=== PATIENT | male | born 1975 | race Caucasian/White ===

== ENCOUNTER 2022-11-10 15:12 | Observation (INO) | payer MEDICAID, SELFPAY ==
[2022-11-10] VITALS (57 sets, daily range): BP systolic 104–148; BP diastolic 64–110; PULSE 57–107; RESP 4–23; TEMP 36.8–37; O2SAT 81–100; BMI 26.0
--- NOTE | 2022-11-10 15:19 | ED_ITS ---
HPI - CPR General Chief Complaint: Cardiac Arrest/CPR Stated Complaint: CARDIAC ARREST Mode of arrival: walk-in History of Present Illness HPI Narrative: Patient brought in unresponsive. He was carried in to the emergency department by his 2 sons and a friend. They state they found him in the basement on the ground head 1st. He was not responding. He was not breathing. He was cyanotic he has a known history of drug abuse. He has not been sick with anything recently. No other history is provided by the family. There is a family friend who states the patient uses meth, cocaine, heroine, fentanyl, and anything becomes this way. Related Data Allergies Allergy/AdvReac Type Severity Reaction Status Date / Time No Known Drug Allergies Allergy Verified 11/10/22 15:18 Review of Systems ROS Status of ROS unobtainable due to medical condition Examination Exam Primary Survey: Yes apneic and Yes bag valve mask General: Yes thin Head/Face: Yes other (No trauma noted) Eyes: Yes pinpoint pupils Neck: Yes supple Chest: Yes intact to palpation Circulation: Yes weak peripheral pulse, Yes cyanosis and Yes mottling Respiratory: Yes other (No chest rise, no respiratory effort.) Gastrointestinal: Yes nondistended Extremities: Yes intact to palpation Back/Spine: Yes normal to inspection Skin: Yes no sign of injury Course Vital Signs Vital signs: Vital Signs Pulse Oximetry 97 11/10/22 15:25 Oxygen Delivery Method Nasal Cannula 11/10/22 15:25 Oxygen Delivery Flow Rate 3 11/10/22 15:25 Pulse Rate 100 H 11/10/22 18:00 Respiratory Rate 21 11/10/22 18:00 Blood Pressure 134/98 H 11/10/22 17:15 Pulse Oximetry 100 11/10/22 17:20 Oxygen Delivery Method Nasal Cannula 11/10/22 15:25 Oxygen Delivery Flow Rate 3 11/10/22 15:25 MDM - Cardiac Arrest/CPR MDM Narrative Medical decision making narrative: Patient's respiratory status was assisted with bag valve mask. Patient had a pu lse. He was given Narcan intranasally while an IV was established. There was no response. After IV was established the patient required 12 mg of Narcan he became diaphoretic, and started responding to sternal rub. He have respiratory effort and was breathing on his own. Patient was placed on a nonrebreather. He was nauseated. Given Zofran 8 mg total and Phenergan 12.5 mg. Patient was given 1 L of normal saline. While the patient was still unresponsive and not responding to Narcan he was given 1 amp of dextrose. Serum glucose was over 500. Patient was given 10 units of insulin in the emergency department. The patient is awake, slightly confused had a CT scan of the brain done which is unremarkable. The patient was placed on a Narcan drip. He is agreeable to staying in the hospital. The patient will be admitted as discussed with Dr. Soto. Differential Diagnosis Differential diagnosis: Likely acute respiratory failure Lab Data Attestation: I reviewed the patient's lab results. Labs: Lab Results 11/10/22 11/10/22 Range/Units 15:21 17:36 WBC 8.4 (4.0-11.0) 10^3/uL RBC 3.89 L (4.70-6.10) 10^6/uL Hgb 12.0 L (14.0-18.0) g/dL Hct 37.6 L (42.0-54.0) % MCV 96.7 H (80.0-94.0) fL MCH 30.8 (25.9-34.0) pg MCHC 31.9 (29.9-35.2) g/dL RDW 13.8 (11.0-15.0) % Plt Count 271 (150-450) 10^3/uL MPV 10.4 (9.5-13.5) fL Neut % (Auto) 49.9 (43.0-75.0) % Lymph % (Auto) 39.9 (20.5-60.0) % [place] % (Auto) 7.6 (1.7-12.0) % Eos % (Auto) 1.4 (0.9-7.0) % Baso % (Auto) 0.5 (0.2-2.0) % Neut # (Auto) 4.2 (1.4-6.5) 10^3/uL Lymph # (Auto) 3.4 (1.2-3.8) 10^3/uL [place] # (Auto) 0.6 (0.3-0.8) 10^3/uL Eos # (Auto) 0.1 (0.0-0.7) 10^3/uL Baso # (Auto) 0.0 (0.0-0.1) 10^3/uL Abs Immat Gran (auto) 0.06 H (0.00-0.03) 10^3/uL Imm/Tot Granulo (auto) 0.7 H (0.0-0.5) % Sodium 138 (136-145) mmol/L Potassium 3.2 L (3.5-5.1) mmol/L Chloride 102 (98-107) mmol/L Carbon Dioxide 22.8 (21.0-32.0) mmol/L Anion Gap 16.4 BUN 20.0 H (7.0-18.0) mg/dL Creatinine 1.76 H (0.70-1.30) mg/dL Est GFR ( Amer) 51 L (>=60) Est GFR (Non-Af Amer) 42 L (>=60) BUN/Creatinine Ratio 11.4 Glucose 592 H* (74-106) mg/dL Lactate 4.9 H* (0.4-2.0) mmol/L Calcium 8.0 L (8.5-10.1) mg/dL Magnesium 2.2 (1.8-2.4) mg/dL Total Bilirubin 0.1 L (0.2-1.0) mg/dL AST 21 (15-37) U/L ALT 16 (16-63) U/L Alkaline Phosphatase 41 L (46-116) U/L Troponin I High Sens 4.8 (4.0-76.1) pg/mL Total Protein 5.9 L (6.4-8.2) g/dL Albumin 2.7 L (3.4-5.0) g/dL Globulin 3.2 g/dL Albumin/Globulin Ratio 0.8 Urine Color Lt. yellow (YELLOW) Urine Clarity Clear (CLEAR) Urine pH 7.0 (5.0-9.0) Ur Specific [place] 1.015 (1.005-1.025) Urine Protein 30 A (NEG/TRACE) mg/dL Urine Glucose (UA) >=1000 A (NEGATIVE) mg/dL Urine Ketones Negative (NEGATIVE) mg/dL Urine Occult Blood Trace-i (NEGATIVE) Urine Nitrite Negative (NEGATIVE) Urine Bilirubin Negative (NEGATIVE) Urine Urobilinogen 0.2 (0.2-1.0) EU/dL Ur Leukocyte Esterase Negative (NEGATIVE) Salicylates <2.8 (<=19.9) mg/dL Acetaminophen <2.0 L (10.0-30.0) ug/mL Ethanol Quant <3 mg/dL ECG Data Attestation: I personally reviewed and interpreted this ECG as follows: Interpretation: Sinus tachycardia without any acute ischemic changes. Critical Care Time Critical Care Time Critical Care Time: Yes Total Critical Care Time: 45 Attestation: Critical Care Time: 45 minutes, critical care time is separate from any procedures that are performed. The following was considered in the determination of critical care but not limited to the level medical decision-making, intensive cardiac and/or respiratory monitor, frequent vital sign monitoring, evaluation of laboratory studies, evaluation of a radiographic studies, oxygen monitoring and constant monitoring. Discharge Plan Discharge Chief Complaint: Cardiac Arrest/CPR Clinical Impression: Unresponsive, Acute hyperglycemia, High serum lactate, Opioid overdose Patient Disposition: Admitted as Observation Time of Disposition Decision: 16:33 Condition: Good
--- NOTE | 2022-11-10 15:19 | PC.NURSE ---
this nurse in hallway and hears yelling and a family member carrying patient no rroms availiable at this time pulse palpable but patient not responding pt rao and nasal narcan given pt does not awaken at that time naracan given 6 times and dextrose given pt responds after multiple attemps and narcan resp at bedside crash cart multiple nurse attempting to care for patient with md at bedside pt awakens and is slightly combative and confused at times 2 ivs initiated 18g to lt ac and 20 g to rt ac
--- NOTE | 2022-11-10 15:25 | ECG_ITS ---
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
[2022-11-10 15:38] LABS: Basophils Percent Auto 0.5 % (0.2-2.0); Eosinophils Absolute Auto 0.1 10^3/uL (0.0-0.7); Eosinophils Percent Auto 1.4 % (0.9-7.0); Hematocrit 37.6 % (42.0-54.0); Immature Granulocytes Abs Auto 0.06 10^3/uL (0.00-0.03); Immature Granulocytes Pct Auto 0.7 % (0.0-0.5); Lymphocytes Absolute Auto 3.4 10^3/uL (1.2-3.8); Lymphocytes Percent Auto 39.9 % (20.5-60.0); Mean Corpuscular HGB Conc 31.9 g/dL (29.9-35.2); Mean Corpuscular Hemoglobin 30.8 pg (25.9-34.0); Mean Corpuscular Volume 96.7 fL (80.0-94.0); Mean Platelet Volume 10.4 fL (9.5-13.5); Monocytes Absolute Auto 0.6 10^3/uL (0.3-0.8); Monocytes Percent Auto 7.6 % (1.7-12.0); Neutrophils Absolute Auto 4.2 10^3/uL (1.4-6.5); Neutrophils Percent Auto 49.9 % (43.0-75.0); Platelet Count 271 10^3/uL (150-450); Red Blood Count 3.89 10^6/uL (4.70-6.10); Red Cell Distribution Width 13.8 % (11.0-15.0); White Blood Count 8.4 10^3/uL (4.0-11.0)
[2022-11-10 15:53] LABS: Acetaminophen <2.0 ug/mL (10.0-30.0); Alanine Aminotransferase 16 U/L (16-63); Albumin Globulin Ratio 0.8; Albumin Level 2.7 g/dL (3.4-5.0); Alkaline Phosphatase 41 U/L (46-116); Anion Gap 16.4; Aspartate Amino Transferase 21 U/L (15-37); BUN Creatinine Ratio 11.4; Bilirubin Total 0.1 mg/dL (0.2-1.0); Carbon Dioxide 22.8 mmol/L (21.0-32.0); Chloride 102 mmol/L (98-107); Estimated GFR (African America 51 (>=60); Estimated GFR (Non-African Ame 42 (>=60); Ethanol <3 mg/dL; Globulin 3.2 g/dL; Magnesium 2.2 mg/dL (1.8-2.4); Potassium 3.2 mmol/L (3.5-5.1); Salicylate <2.8 mg/dL (<=19.9); Sodium 138 mmol/L (136-145); Total Protein 5.9 g/dL (6.4-8.2); Troponin I High Sensitivity 4.8 pg/mL (4.0-76.1)
--- NOTE | 2022-11-10 15:55 | CT_ITS ---
The [address] [address] Patient Name: MARYAM VEGA MRN: [id number] date: 1975 Sex: M Assigned Patient Location: ER Current Patient Location: ER Accession/Order Number: [id number] Exam Date: 11/10/2022 15:45 Report Date: 11/10/2022 16:04 At the request of: MACIE LYNN Procedure: CT head/brain wo con CT head/brain wo con, 11/10/2022 3:45 PM EDT INDICATION: Unresponsive COMPARISON: No prior CT scan of the head available for comparison at the time of this dictation. TECHNIQUE: Axial CT images of the brain from skull base to vertex, including portions of the face and sinuses, were obtained without contrast. Multiplanar reformatted images were generated and reviewed as needed. FINDINGS: No intracranial mass, hydrocephalus, midline shift or acute hemorrhage. No extra-axial collection. [place]-white matter differentiation is preserved. The paranasal sinuses and mastoid air cells are clear. Orbits are within normal limits. No acute skull fracture. CT/CT head/brain wo con IMPRESSION: No acute intracranial abnormality. Electronically authenticated by: MARYCRUZ MORELAND Date: 11/10/2022 16:04
[2022-11-10 15:56] LABS: Glucose 592 mg/dL (74-106); Lactate/Lactic Acid 4.9 mmol/L (0.4-2.0)
[2022-11-10] MEDS: INSULIN REGULAR 300 UNITS/3 ML 10 UNIT IV (16:18)
[2022-11-10] MEDS: ONDANSETRON PF 4 MG/2 ML VIAL IV ×2 (16:18→16:26)
[2022-11-10] MEDS: PROMETHAZINE HCL 25 MG/ML VIAL 12.5 MG IV (16:18)
--- NOTE | 2022-11-10 16:20 | XR_ITS ---
The [address] [address] Patient Name: MARYAM VEGA MRN: [id number] date: 1975 Sex: M Assigned Patient Location: ER Current Patient Location: ED.MAIN Accession/Order Number: [id number] Exam Date: 11/10/2022 16:15 Report Date: 11/10/2022 16:40 At the request of: MACIE LYNN Procedure: XR chest 1V EXAM: CHEST 1 VIEW HISTORY: unresponsive TECHNIQUE: Chest, one view. COMPARISON: None. FINDINGS: Lungs are hyperinflated. The inferior portions of the lungs with costophrenic angles are excluded from view. No focal consolidation, pleural effusion, or pneumothorax. Pulmonary vasculature is within normal limits. Cardiomediastinal silhouette is normal. XR/XR chest 1V IMPRESSION: 1. Hyperinflated lungs with both costophrenic recesses excluded from view on this single image. However, visualized lungs clear without acute cardiopulmonary disease seen. 2. Normal heart size. Electronically authenticated by: ILIR LAL Date: 11/10/2022 16:40
[2022-11-10] MEDS: 0.9 % SODIUM CHLORIDE 1,000 ML 999 ML IV (16:26)
[2022-11-10] MEDS: 0.9 % SODIUM CHLORIDE 1,000 ML 1000 ML IV (16:28)
[2022-11-10 17:47] LABS: Bilirubin Urine NEGATIVE (NEGATIVE); Blood Urine TRACE-I (NEGATIVE); Clarity Urine CLEAR (CLEAR); Color Urine LT. YELLOW (YELLOW); Glucose Urine UA >=1000 mg/dL (NEGATIVE); Ketones Urine NEGATIVE (NEGATIVE); Leukocyte Esterase Urine NEGATIVE (NEGATIVE); Nitrite Urine NEGATIVE (NEGATIVE); Protein Urine 30 mg/dL (NEG/TRACE); Specific Gravity Urine 1.015 (1.005-1.025); Urobilinogen Urine 0.2 EU/dL (0.2-1.0)
[2022-11-10 17:58] LABS: Urine Microscopic Indicated YES
[2022-11-10 18:25] LABS: Bacteria Urine SMALL #/HPF (NONE SEEN); Cast Seen? NONE SEEN #/LPF (NONE SEEN); Crystals Seen? None Seen #/HPF (None Seen); Mucus Urine NONE SEEN (NONE SEEN); Squamous Epithelial Cell Urine NONE SEEN #/LPF (NONE/RARE); Urine Culture Indicated YES; WBC Urine 0-2 #/HPF (NONE SEEN)
[2022-11-10 18:26] LABS: Amphetamine Screen Urine NEGATIVE (NEGATIVE); Barbiturates Screen Urine NEGATIVE (NEGATIVE); Benzodiazepines Screen Urine NEGATIVE (NEGATIVE); Buprenorphine Screen Urine NEGATIVE (NEGATIVE); Cannabinoid Screen Urine NEGATIVE (NEGATIVE); Cocaine Screen Urine NEGATIVE (NEGATIVE); Methadone Screen Urine NEGATIVE (NEGATIVE); Methamphetamines Screen Urine NEGATIVE (NEGATIVE); Opiate Screen Urine NEGATIVE (NEGATIVE); Oxycodone Screen Urine NEGATIVE (NEGATIVE); Phencyclidine Screen Urine NEGATIVE (NEGATIVE); Tricyclic Antidepressant Urine NEGATIVE (NEGATIVE)
[2022-11-10 19:37] LABS: Lactate/Lactic Acid 1.4 mmol/L (0.4-2.0)
[2022-11-10] MEDS: POTASSIUM CHLORIDE 40 MEQ IN 0.9%NACL 1,000 ML 100 MEQ IV (20:41)
[2022-11-10 20:47] LABS: Glucometer 143 mg/dL (74-106)
[2022-11-11] VITALS (71 sets, daily range): BP systolic 103–113; BP diastolic 71–75; PULSE 61–95; RESP 0–18; TEMP 36.6–37; O2SAT 95–97
[2022-11-11 05:46] LABS: Basophils Percent Auto 0.4 % (0.2-2.0); Eosinophils Absolute Auto 0.1 10^3/uL (0.0-0.7); Hematocrit 35.1 % (42.0-54.0); Hemoglobin 11.6 g/dL (14.0-18.0); Immature Granulocytes Abs Auto 0.02 10^3/uL (0.00-0.03); Immature Granulocytes Pct Auto 0.3 % (0.0-0.5); Lymphocytes Absolute Auto 1.9 10^3/uL (1.2-3.8); Lymphocytes Percent Auto 23.4 % (20.5-60.0); Mean Corpuscular Hemoglobin 31.6 pg (25.9-34.0); Mean Corpuscular Volume 95.6 fL (80.0-94.0); Monocytes Absolute Auto 0.8 10^3/uL (0.3-0.8); Monocytes Percent Auto 10.3 % (1.7-12.0); Neutrophils Absolute Auto 5.1 10^3/uL (1.4-6.5); Neutrophils Percent Auto 64.6 % (43.0-75.0); Platelet Count 228 10^3/uL (150-450); Red Blood Count 3.67 10^6/uL (4.70-6.10)
--- NOTE | 2022-11-11 05:47 | PC.NURSE ---
Notified Dr. Francisco Javier Felix that patient was c/o H/A and itching. Received orders for ultram,tylenol, and ivp benadryl for the itching.
[2022-11-11 05:57] LABS: Alanine Aminotransferase 39 U/L (16-63); Albumin Level 3.2 g/dL (3.4-5.0); Alkaline Phosphatase 38 U/L (46-116); Anion Gap 6.6; Aspartate Amino Transferase 30 U/L (15-37); Bilirubin Total 0.2 mg/dL (0.2-1.0); Calcium 8.6 mg/dL (8.5-10.1); Carbon Dioxide 34.7 mmol/L (21.0-32.0); Chloride 101 mmol/L (98-107); Estimated GFR (African America >60 (>=60); Estimated GFR (Non-African Ame >60 (>=60); Globulin 3.3 g/dL; Glucose 84 mg/dL (74-106); Magnesium 1.6 mg/dL (1.8-2.4); Potassium 4.3 mmol/L (3.5-5.1); Sodium 138 mmol/L (136-145); Total Protein 6.5 g/dL (6.4-8.2)
[2022-11-11] MEDS: TRAMADOL HCL 50 MG TABLET PO ×2 (06:21→11:12)
[2022-11-11] MEDS: DIPHENHYDRAMINE HCL 50 MG/ML (1ML) VIAL 25 MG IV (06:21)
[2022-11-11] MEDS: POTASSIUM CHLORIDE 40 MEQ IN 0.9%NACL 1,000 ML 100 MEQ IV (08:34)
--- NOTE | 2022-11-12 01:59 | PM.HP ---
H&P: HPI History of Present Illness Chief complaint: Drug Overdose Narrative: Delayed note for my encounter on 11/11/22 HPI and Hospital Course: 47 y o male with hx of polysubstance use was brought in for unresponsiveness when his son found him in house. According to son, he was cyanotic and was not breathing. Patient on arrival to ED, was unresponsive and requited ventilation via ambu bag and started to become more awake and response once he received IV narcan. This morning when I evaluated him, he had no active complaints to offer except for headache which is not unusual for him as he gets frequent migraine ARMENDARIZ. He admitted to polysubstance abuse and that he thought he was using methamphetamine but as soon as he snorted it - he knew it was laced with an opioid. Patient counseled and educated in detail on dangers of substance abuse. He was not really receptive and keen and did not think he had a drug problem Admission Diagnosis Opioid overdose. Hx of polysubstance abuse Lactic acidosis Unresponsive/decreased consciousness Discharge diagnosis as above Discharge status stable. Review of Systems ROS Status of ROS 10 or more systems reviewed and unremarkable except as noted in history and below [facility] Medical History (Updated 11/12/22 @ 02:12 by Shaikh Cinthia MD) Family History Father Family history of cancer Social History Within the past year, how often did you have a drink containing alcohol: 2-4 times a month Within the past year, how many standard drinks containing alcohol did you have on a typical day: 1 or 2 Within the past year, how often did you have six or more drinks on one occasion: less than monthly Total score: 1 Score interpretation: A score less than 4 is consistent with normal alcohol consumption. 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 Meds Home Medications and Allergies Allergies Allergy/AdvReac Type Severity Reaction Status Date / Time No Known Drug Allergies Allergy Verified 11/10/22 15:18 Exam Constitutional Vital Signs, click to edit/add: Last Vital Signs Temp 98 F 11/11/22 11:16 Pulse 61 11/11/22 14:00 Resp 8 L 11/11/22 11:09 BP 113/75 11/11/22 11:09 Pulse Ox 96 11/11/22 11:40 O2 Del Method Room Air 11/11/22 11:40 O2 Flow Rate 3 11/10/22 15:25 Documenting provider has reviewed patient's vital signs: yes Common normals: no apparent distress and oriented x3 General appearance: cooperative HENMT Common normals: normocephalic and head/scalp atraumatic Head and scalp: normocephalic and atraumatic Eye Common normals: conjunctivae normal and no scleral icterus Conjunctiva: conjunctiva(e) normal Respiratory Common normals: normal respiratory effort and clear to auscultation bilaterally Effort & inspection: able to speak in complete sentences Auscultation: clear to auscultation bilaterally Cardio Common normals: regular rate, S1 normal heart sound and S2 normal heart sound Rate: regular rate Heart sounds: S1 normal and S2 normal GI Common normals: Normal to inspection, nondistended, normoactive bowel sounds present, soft to palpation, non-tender and no hepatosplenomegaly Palpation: soft and no hepatosplenomegaly Extremity Common normals: no clubbing, cyanosis or edema Neuro Common normals: oriented x3, moves all extremities and no focal motor deficits Psych Common normals: mental status grossly normal, denies hallucinations, denies homicidal ideation and denies suicidal ideation Results Labs Labs: Short CBC 11/11/22 Range/Units 05:20 WBC 8.0 (4.0-11.0) 10^3/uL Hgb 11.6 L (14.0-18.0) g/dL Hct 35.1 L (42.0-54.0) % Plt Count 228 (150-450) 10^3/uL BMP 11/11/22 05:20 Sodium 138 Potassium 4.3 Chloride 101 Carbon Dioxide 34.7 H BUN 16.0 Creatinine 0.89 Glucose 84 Calcium 8.6 Liver Function 11/11/22 Range/Units 05:20 Total Bilirubin 0.2 (0.2-1.0) mg/dL AST 30 (15-37) U/L ALT 39 (16-63) U/L Alkaline Phosphatase 38 L (46-116) U/L Albumin 3.2 L (3.4-5.0) g/dL Assessment and Plan Assessment and Plan (1) Opioid overdose: Qualifiers: Encounter type: subsequent encounter Injury intent: accidental or unintentional Qualified Code(s): T40.2X1D - Poisoning by other opioids, accidental (unintentional), subsequent encounter (2) Unresponsive: (3) Decreased level of consciousness: (4) High serum lactate: (5) Polysubstance abuse: Plan Accidental opioid overdose - required IV narcan infusion with improvement in his symptoms and returned to baseline by morning. Counseled on substance abuse. Patient asked to f/u with PCP in one week. Stable for d/c
--- NOTE | 2022-11-13 11:12 | CM.DCFOLLOWU ---
1st attempt follow up call made by Fabienne Sevilla on 11/13/22, no answer at this time.
--- NOTE | 2022-11-14 15:31 | CM.DCFOLLOWU ---
2nd attempt follow up call made by Fabienne Sevilla on 11/14/2022.
--- NOTE | 2022-11-14 15:32 | CM.DCFOLLOWU ---
2nd attempt discharge follow up call made by Fabienne Sevilla on 11/14/2022, no answer at this time.
--- NOTE | 2022-11-15 16:21 | CM.DCFOLLOWU ---
3rd attempt discharge follow up call made by Fabienne Sevilla on 11/15/22, no answer at this time 3 attempts were made and no answer each time.
== END 2022-11-11 14:55 | disposition home or self-care (01) ==
LOC: ER 17:44 → ICU 18:29
PROVIDERS: Admitting Provider Family Medicine; Emergency Provider Emergency Medicine; PCP Family Medicine; Visit Provider Internal Medicine
DX: T40.2X1A Poisoning by other opioids, accidental (unintentional), initial encounter (principal); F19.10 Other psychoactive substance abuse, uncomplicated; E87.20 Acidosis, unspecified; R40.4 Transient alteration of awareness; F17.210 Nicotine dependence, cigarettes, uncomplicated
CPT/HCPCS: 36415; 70450; 71045; 80053; 80179; 80307; 80320; 80329; 81001; 83605; 83735; 84484; 85025; 87086; 93005; 94761; 96365; 96366; 96375; 96376; 99291; G0378

== ENCOUNTER 2023-11-18 23:08 | Emergency (ER) | payer OTHER, MEDICAID, SELFPAY ==
[2023-11-18 23:25] VITALS: BP 124/77; PULSE 104; TEMP 36.8; O2SAT 98; BMI 18.7
--- NOTE | 2023-11-18 23:37 | ED_ITS ---
HPI HPI - Back Pain/Injury General Chief Complaint: Back Pain/Injury Stated Complaint: flank pain Time Seen by Provider: 11/18/23 23:09 Source: patient Mode of arrival: walk-in Limitations: no limitations History of Present Illness HPI Narrative: 48-year-old male presents for pain in his left lower posterior rib region. He has had it for a few days and does not recall any injury. No dysuria or hematuria or shortness of breath. It is in a very small focal area and it hurts if he pushes on it in the right place. Related Data Home Medications ?Medication ?Instructions ?Recorded ?Confirmed No Known Home Medications 11/18/23 11/18/23 Allergies Allergy/AdvReac Type Severity Reaction Status Date / Time No Known Drug Allergies Allergy Verified 11/18/23 23:31 Opioid HPI Opioid Management Most Recent Opioid Data: Last Pain Scale 5 11/18/23 23:38 Ur Phencyclidine Scrn Negative (NEGATIVE) 11/10/22 17:36 Review of Systems ROS Narrative A ten point review of systems is negative except as noted above. [facility] Medical History (Updated 11/19/23 @ 02:03 by Ehsan Self MD) Polysubstance abuse ?F19.10 - Other psychoactive substance abuse, uncomplicated (ICD-10) Depression ?F32.A - Depression, unspecified (ICD-10) Migraine ?G43.909 - Migraine, unspecified, not intractable, without status migrainosus (ICD-10) Family History Father Family history of cancer Social History Within the past year, how often did you have a drink containing alcohol: 2-4 times a month Within the past year, how many standard drinks containing alcohol did you have on a typical day: 1 or 2 Within the past year, how often did you have six or more drinks on one occasion: less than monthly Total score: 1 Score interpretation: A score less than 4 is consistent with normal alcohol c onsumption. 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 General: The patient appears well and in no apparent distress. Patient is resting comfortably on cart. Skin: Warm, dry, no pallor noted. There is no rash noted. Head: Normocephalic, atraumatic Eye: Normal conjunctiva, no drainage Ears, Nose, Mouth, and Throat: oral mucosa is moist. Nares patent. Cardiovascular: Regular Rate and Rhythm Respiratory: Patient is in no distress, no accessory muscle use, lungs are clear to auscultation, no wheezing, rales or rhonchi Back: He has a tenderness to palpation in the left lower posterior rib region. There is no crepitus bruise rash or abrasion. Thoracic spine not tender. GI: Normal bowel sounds, no tenderness to palpation, no masses appreciated. No rebound, guarding, or rigidity noted. Musculoskeletal: The patient has no evidence of calf tenderness, no pitting edema, symmetrical pulses noted bilaterally Neurological: Awake and alert Psychiatric: Cooperative Constitutional Vital Signs, click to edit/add: Last Vital Signs Temp 98.3 F 11/18/23 23:25 Pulse 104 H 11/18/23 23:25 Resp 16 11/18/23 23:25 BP 124/77 11/18/23 23:25 Pulse Ox 98 11/18/23 23:38 O2 Del Method Room Air 11/18/23 23:38 Course Vital Signs Vital signs: Vital Signs Temperature 98.3 F 11/18/23 23:25 Pulse Rate 104 H 11/18/23 23:25 Respiratory Rate 16 11/18/23 23:25 Blood Pressure 124/77 11/18/23 23:25 Pulse Oximetry 98 11/18/23 23:25 Oxygen Delivery Method Room Air 11/18/23 23:25 Temperature 98.3 F 11/18/23 23:25 Pulse Rate 104 H 11/18/23 23:25 Respiratory Rate 16 11/18/23 23:25 Blood Pressure 124/77 11/18/23 23:25 Pulse Oximetry 98 11/18/23 23:38 Oxygen Delivery Method Room Air 11/18/23 23:38 MDM - Back Pain/Injury MDM Narrative Medical decision making narrative: X-ray and urinalysis are negative. He was recommended ice or heating pad and ibuprofen. Treatment diagnosis and follow-up were discussed with the patient. Differential Diagnosis Differential diagnosis: Likely other (Muscle strain, pneumothorax, rib fracture) Lab Data Attestation: I reviewed the patient's lab results. Labs: Lab Results 11/19/23 Range/Units 01:13 Urine Color Yellow (YELLOW) Urine Clarity Clear (CLEAR) Urine pH 6.0 (5.0-9.0) Ur Specific [place] >=1.030 A (1.005-1.025) Urine Protein Trace (NEG/TRACE) mg/dL Urine Glucose (UA) Negative (NEGATIVE) mg/dL Urine Ketones Negative (NEGATIVE) mg/dL Urine Occult Blood Small A (NEGATIVE) Urine Nitrite Negative (NEGATIVE) Urine Bilirubin Negative (NEGATIVE) Urine Urobilinogen 0.2 (0.2-1.0) EU/dL Ur Leukocyte Esterase Negative (NEGATIVE) Urine RBC 2-5 A (0-2) #/HPF Urine WBC 0-2 A (NONE SEEN) #/HPF Ur Squamous Epith Cells Rare (NONE/RARE) #/LPF Urine Crystals Seen A (None Seen) #/HPF Calcium Oxalate Crystal Few Urine Bacteria Trace A (NONE SEEN) #/HPF Urine Casts None seen (NONE SEEN) #/LPF Urine Mucus Trace A (NONE SEEN) Urine Sperm Seen Imaging Data Chest x-ray: Radiologist's impression: ITS Impressions Chest X-Ray 11/18/23 23:37 IMPRESSION: 1. No acute cardiopulmonary abnormality. Electronically authenticated by: Emil HUTSON Date: 11/19/2023 01:27 Discharge Plan Discharge Chief Complaint: Back Pain/Injury Clinical Impression: Back pain Patient Disposition: Home, Self-Care Time of Disposition Decision: 02:02 Condition: Good Mode of Transportation: Private Vehicle Prescriptions / Home Meds: No Action No Known Home Medications Print Language: Northern Irish Instructions: Back Pain (ED) Referrals: FLOR BULL [Primary Care Provider] - 1 week
--- NOTE | 2023-11-18 23:37 | XR_ITS ---
The [address] [address] Patient Name: MARYAM VEGA MRN: [id number] date: 1975 Sex: M Assigned Patient Location: ER Current Patient Location: ED.MAIN Accession/Order Number: [id number] Exam Date: 11/18/2023 23:42 Report Date: 11/19/2023 01:27 At the request of: LATISHA HARRINGTON Procedure: XR chest 1V EXAM: XR chest 1V HISTORY: pain COMPARISON: Chest radiograph dated 11/10/2022. TECHNIQUE: One view of the chest was obtained. FINDINGS: The cardiac silhouette is normal in size. The lungs are clear. There is no significant pneumothorax or pleural effusion. No acute osseous abnormality is seen. XR/XR chest 1V IMPRESSION: 1. No acute cardiopulmonary abnormality. Electronically authenticated by: Emil HUTSON Date: 11/19/2023 01:27
[2023-11-18 23:38] VITALS: O2SAT 98
[2023-11-19 01:28] LABS: Bilirubin Urine NEGATIVE (NEGATIVE); Blood Urine SMALL (NEGATIVE); Clarity Urine CLEAR (CLEAR); Color Urine YELLOW (YELLOW); Glucose Urine UA NEGATIVE (NEGATIVE); Ketones Urine NEGATIVE (NEGATIVE); Leukocyte Esterase Urine NEGATIVE (NEGATIVE); Nitrite Urine NEGATIVE (NEGATIVE); Protein Urine TRACE mg/dL (NEG/TRACE); Specific Gravity Urine >=1.030 (1.005-1.025); Urobilinogen Urine 0.2 EU/dL (0.2-1.0)
[2023-11-19 01:48] LABS: Bacteria Urine TRACE #/HPF (NONE SEEN); Calcium Oxalate Crystals Urine FEW; Cast Seen? NONE SEEN #/LPF (NONE SEEN); Crystals Seen? Seen #/HPF (None Seen); Squamous Epithelial Cell Urine RARE #/LPF (NONE/RARE); WBC Urine 0-2 #/HPF (NONE SEEN)
[2023-11-19 01:49] LABS: Sperm Urine SEEN
[2023-11-19 01:50] LABS: Mucus Urine TRACE (NONE SEEN)
== END 2023-11-19 02:05 | disposition home or self-care (01) ==
PROVIDERS: Emergency Provider Emergency Medicine; PCP Family Medicine
DX: M54.9 Dorsalgia, unspecified (principal); F17.200 Nicotine dependence, unspecified, uncomplicated
CPT/HCPCS: 71045; 81001; 99284

== ENCOUNTER 2024-01-05 10:50 | Emergency (ER) | payer OTHER, MEDICAID, SELFPAY ==
[2024-01-05] VITALS (17 sets, daily range): BP systolic 125–148; BP diastolic 81–128; PULSE 77–101; TEMP 36.5; O2SAT 99–100; BMI 18.7
--- NOTE | 2024-01-05 11:10 | ECG_ITS ---
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
[2024-01-05] MEDS: 0.9 % SODIUM CHLORIDE 1,000 ML 500 ML IV (11:16)
[2024-01-05] MEDS: KETOROLAC TROMETHAMINE 30 MG/ML VIAL 15 MG IVP (11:17)
[2024-01-05] MEDS: ORPHENADRINE 60 MG/ 2 ML VIAL 30 MG IV (11:18)
[2024-01-05 11:20] LABS: Basophils Absolute Auto 0.1 10^3/uL (0.0-0.1); Basophils Percent Auto 0.8 % (0.2-2.0); Eosinophils Absolute Auto 0.2 10^3/uL (0.0-0.7); Eosinophils Percent Auto 2.6 % (0.9-7.0); Hematocrit 43.8 % (42.0-54.0); Hemoglobin 14.3 g/dL (14.0-18.0); Immature Granulocytes Abs Auto 0.02 10^3/uL (0.00-0.03); Immature Granulocytes Pct Auto 0.3 % (0.0-0.5); Lymphocytes Absolute Auto 2.2 10^3/uL (1.2-3.8); Lymphocytes Percent Auto 28.6 % (20.5-60.0); Mean Corpuscular HGB Conc 32.6 g/dL (29.9-35.2); Mean Corpuscular Hemoglobin 32.1 pg (25.9-34.0); Mean Corpuscular Volume 98.2 fL (80.0-94.0); Mean Platelet Volume 9.6 fL (9.5-13.5); Monocytes Absolute Auto 0.9 10^3/uL (0.3-0.8); Monocytes Percent Auto 11.7 % (1.7-12.0); Neutrophils Absolute Auto 4.3 10^3/uL (1.4-6.5); Platelet Count 306 10^3/uL (150-450); Red Blood Count 4.46 10^6/uL (4.70-6.10); Red Cell Distribution Width 12.9 % (11.0-15.0); White Blood Count 7.7 10^3/uL (4.0-11.0)
--- NOTE | 2024-01-05 11:30 | CT_ITS ---
The [address] [address] Patient Name: MARYAM VEGA MRN: [id number] date: 1975 Sex: M Assigned Patient Location: ER Current Patient Location: ER Accession/Order Number: [id number] Exam Date: 01/05/2024 11:53 Report Date: 01/05/2024 12:12 At the request of: CECE BARNARD Procedure: CT head/brain wo con EXAM: CT head/brain wo con HISTORY: headache COMPARISON: 11/10/2022 TECHNIQUE: Multiple thin computed tomograms of the head were obtained, with sagittal and coronal reconstructions. Radiation reduction technique and algorithms were utilized during the study. FINDINGS: The ventricles are not enlarged, the lateral ventricles are symmetric and the third ventricles in the midline. The sylvian fissures and cortical sulci are unremarkable. There is no evidence of an intracranial hemorrhage, mass lesion or apparent acute infarct. No focal abnormality is identified the deep white matter. The cerebellum and visualized brainstem are intact. The visualized paranasal sinuses are clear. The middle ears are aerated. The mastoid sinuses are clear. There is no apparent acute skull fracture. CT/CT head/brain wo con IMPRESSION: There is no evidence of an intracranial hemorrhage, mass lesion or apparent acute infarct. The visualized sinuses are clear. There is no apparent acute skull fracture. The overall appearance has not changed significantly. Electronically authenticated by: ADRIANA LYNNE Date: 01/05/2024 12:12
[2024-01-05 11:40] LABS: Alanine Aminotransferase 27 U/L (16-63); Albumin Globulin Ratio 0.8; Albumin Level 3.2 g/dL (3.4-5.0); Alkaline Phosphatase 67 U/L (46-116); Anion Gap 13.4; Aspartate Amino Transferase 25 U/L (15-37); BUN Creatinine Ratio 12.1; Bilirubin Total 0.2 mg/dL (0.2-1.0); Calcium 9.2 mg/dL (8.5-10.1); Carbon Dioxide 26.6 mmol/L (21.0-32.0); Chloride 103 mmol/L (98-107); Estimated GFR (African America >60 (>=60 mL/min/1.73m^2); Estimated GFR (Non-African Ame >60 (>=60 mL/min/1.73m^2); Globulin 4.2 g/dL; Glucose 94 mg/dL (74-106); Sodium 139 mmol/L (136-145); Total Protein 7.4 g/dL (6.4-8.2)
[2024-01-05 11:44] LABS: Troponin I High Sensitivity 6.3 pg/mL (4.0-76.1)
[2024-01-05 12:26] LABS: Amphetamine Screen Urine POSITIVE (NEGATIVE); Barbiturates Screen Urine NEGATIVE (NEGATIVE); Benzodiazepines Screen Urine NEGATIVE (NEGATIVE); Buprenorphine Screen Urine NEGATIVE (NEGATIVE); Cannabinoid Screen Urine NEGATIVE (NEGATIVE); Cocaine Screen Urine NEGATIVE (NEGATIVE); Methadone Screen Urine NEGATIVE (NEGATIVE); Methamphetamines Screen Urine POSITIVE (NEGATIVE); Opiate Screen Urine NEGATIVE (NEGATIVE); Oxycodone Screen Urine NEGATIVE (NEGATIVE); Phencyclidine Screen Urine NEGATIVE (NEGATIVE); Tricyclic Antidepressant Urine NEGATIVE (NEGATIVE)
--- NOTE | 2024-01-05 12:39 | ED.GENADUL1 ---
HPI HPI - General Adult General Chief complaint: Headache Stated complaint: MIGRAINE Time Seen by Provider: 01/05/24 10:56 Mode of arrival: walk-in History of Present Illness HPI narrative: The patient mentioned that she usually have frequent headache although he mentioned that this headache is different because it is in the front and the back of his head Patient denies taking anything [id number] for it he also mentioned having no nausea or vomiting The patient had photosensitivity No other complaints other than the frontal headache Related Data Home Medications ?Medication ?Instructions ?Recorded ?Confirmed No Known Home Medications 11/18/23 11/18/23 Allergies Allergy/AdvReac Type Severity Reaction Status Date / Time No Known Drug Allergies Allergy Verified 11/18/23 23:31 Opioid HPI Opioid Management Most Recent Opioid Data: Last Pain Scale 1 01/05/24 12:40 01/05/24 Last MAR Pain Assessment 01/05/24 11:17 Ur Phencyclidine Scrn Negative (NEGATIVE) 01/05/24 11:55 01/05/24 Review of Systems ROS Status of ROS 10 or more systems reviewed and unremarkable except as noted in history and below PFSH PFS Medical History (Updated 01/05/24 @ 12:38 by Natalee Choudhary MD) Polysubstance abuse ?F19.10 - Other psychoactive substance abuse, uncomplicated (ICD-10) Depression ?F32.A - Depression, unspecified (ICD-10) Migraine ?G43.909 - Migraine, unspecified, not intractable, without status migrainosus (ICD-10) Family History Father Family history of cancer Social History Within the past year, how often did you have a drink containing alcohol: 2-4 times a month Within the past year, how many standard drinks containing alcohol did you have on a typical day: 1 or 2 Within the past year, how often did you have six or more drinks on one occasion: less than monthly Total score: 1 Score interpretation: A score less than 4 is consistent with normal alcohol consumption. Smoking status: Current every day smoker Non-prescribed substance use: cannabis (any form), amphetamines/methamphetamines and club/retail interior designer drugs Little interest or pleasure in doing things: not at all Feeling down, depressed, or hopeless: not at all Exam Narrative Exam Narrative: Nurses notes and vital signs reviewed and patient is not hypoxic. General: Well-appearing and in no apparent distress. Skin: Warm, dry, no pallor noted. No rash. Head: Normocephalic, atraumatic. Neck: Supple, non-tender. Eye: Pupils are equal, round and EOMI. No scleral icterus. Ears, Nose, Mouth, and Throat: TM are clear, no nasal mucosal hypertrophy. Oral mucosa is dry, no posterior oropharynx erythema, uvula is mid-line Cardiovascular: Regular Rate and Rhythm without murmur, gallop or rub. Respiratory: No accessory muscle use or respiratory distress. Lungs are clear to auscultation, no wheezing, rales or rhonchi Chest Wall: no tenderness Back: No midline thoracic or lumbar vertebral tenderness. No CVA tenderness Musculoskeletal: normal ROM, no calf or popliteal tenderness, no lower extremity edema/swelling GI: Abdomen is soft, non-distended. Normal bowel sounds. No masses appreciated. No tenderness to palpation. No rebound, guarding, or rigidity noted. Neurological: A&O x4. No cranial nerve dysfunction observed. No truncal ataxia. Moves all extremities. Sensation intact. Psychiatric: Cooperative and interactive. Normal mood and affect. Constitutional Vital Signs, click to edit/add: Last Vital Signs Temp 97.7 F 01/05/24 10:54 Pulse 83 01/05/24 13:00 Resp 14 01/05/24 13:00 BP 125/82 01/05/24 13:00 Pulse Ox 99 01/05/24 13:00 O2 Del Method Room Air 01/05/24 13:00 Course Vital Signs Vital signs: Vital Signs Temperature 97.7 F 01/05/24 10:54 Pulse Rate 92 H 01/05/24 10:54 Respiratory Rate 18 01/05/24 10:54 Blood Pressure 128/90 01/05/24 10:54 Pulse Oximetry 100 01/05/24 10:54 Oxygen Delivery Method Room Air 01/05/24 10:54 Temperature 97.7 F 01/05/24 10:54 Pulse Rate 83 01/05/24 13:00 Respiratory Rate 14 01/05/24 13:00 Blood Pressure 125/82 01/05/24 13:00 Pulse Oximetry 99 01/05/24 13:00 Oxygen Delivery Method Room Air 01/05/24 13:00 Medical Decision Making MDM Narrative Medical decision making narrative: The patient EKG showing sinus rhythm with a heart rate of [address] elevation or depression The patient presented to us with headache, there was concern for dehydration that why the patient was provided some IV fluids in addition to Toradol CT head showed no acute pathology and the patient talk screen was positive for methamphetamine The patient is feeling better after supportive care The patient is to follow up with primary care physician in next 2-3 days or to return to the emergency department should any of the signs or symptoms worsen or new symptoms develop. The patient agrees with the following Diagnosis and Treatment plan and the patient will be discharged home. Lab Data Labs: Lab Results 01/05/24 01/05/24 Range/Units 11:05 11:55 WBC 7.7 (4.0-11.0) 10^3/uL RBC 4.46 L (4.70-6.10) 10^6/uL Hgb 14.3 (14.0-18.0) g/dL Hct 43.8 (42.0-54.0) % MCV 98.2 H (80.0-94.0) fL MCH 32.1 (25.9-34.0) pg MCHC 32.6 (29.9-35.2) g/dL RDW 12.9 (11.0-15.0) % Plt Count 306 (150-450) 10^3/uL MPV 9.6 (9.5-13.5) fL Neut % (Auto) 56.0 (43.0-75.0) % Lymph % (Auto) 28.6 (20.5-60.0) % Lander % (Auto) 11.7 (1.7-12.0) % Eos % (Auto) 2.6 (0.9-7.0) % Baso % (Auto) 0.8 (0.2-2.0) % Neut # (Auto) 4.3 (1.4-6.5) 10^3/uL Lymph # (Auto) 2.2 (1.2-3.8) 10^3/uL Lander # (Auto) 0.9 H (0.3-0.8) 10^3/uL Eos # (Auto) 0.2 (0.0-0.7) 10^3/uL Baso # (Auto) 0.1 (0.0-0.1) 10^3/uL Abs Immat Gran (auto) 0.02 (0.00-0.03) 10^3/uL Imm/Tot Granulo (auto) 0.3 (0.0-0.5) % Sodium 139 (136-145) mmol/L Potassium 4.0 (3.5-5.1) mmol/L Chloride 103 (98-107) mmol/L Carbon Dioxide 26.6 (21.0-32.0) mmol/L Anion Gap 13.4 BUN 12.0 (7.0-18.0) mg/dL Creatinine 0.99 (0.70-1.30) mg/dL Est GFR ( Amer) >60 (>=60 mL/min/1.73m^2) Est GFR (Non-Af Amer) >60 (>=60 mL/min/1.73m^2) BUN/Creatinine Ratio 12.1 Glucose 94 (74-106) mg/dL Calcium 9.2 (8.5-10.1) mg/dL Total Bilirubin 0.2 (0.2-1.0) mg/dL AST 25 (15-37) U/L ALT 27 (16-63) U/L Alkaline Phosphatase 67 (46-116) U/L Troponin I High Sens 6.3 (4.0-76.1) pg/mL Total Protein 7.4 (6.4-8.2) g/dL Albumin 3.2 L (3.4-5.0) g/dL Globulin 4.2 g/dL Albumin/Globulin Ratio 0.8 Urine Opiates Screen Negative (NEGATIVE) Ur Buprenorphine Scrn Negative (NEGATIVE) Ur Oxycodone Screen Negative (NEGATIVE) Urine Methadone Screen Negative (NEGATIVE) Ur Barbiturates Screen Negative (NEGATIVE) U Tricyclic Antidepress Negative (NEGATIVE) Ur Phencyclidine Scrn Negative (NEGATIVE) Ur Amphetamines Screen Positive A (NEGATIVE) U Methamphetamines Scrn Positive A (NEGATIVE) U Benzodiazepines Scrn Negative (NEGATIVE) Urine Cocaine Screen Negative (NEGATIVE) U Cannabinoids Screen Negative (NEGATIVE) Discharge Plan Discharge Chief Complaint: Headache Clinical Impression: Headache, Methamphetamine use Patient Disposition: Home, Self-Care Time of Disposition Decision: 12:38 Condition: Good Prescriptions / Home Meds: No Action No Known Home Medications Print Language: Bermudian Instructions: Acute Headache (DC), Methamphetamine Use Disorder (ED) Referrals: FLOR BULL [Primary Care Provider] - 1 week Discharge Date/Time: 01/05/24 13:11
--- OUTSIDE RECORDS SUMMARY | 2024-01-06 08:01 | XMS_ITS | CCD ---
Author Organization [facility] Care Team Providers Care Paid Internship Name Role Phone SHANE ., MACIE Admitting Unavailable SHANE ., MACIE Consulting Unavailable SHANE ., MACIE Attending Unavailable MISC, DR HENDRIX Primary Care Unavailable BARRY ., DR PAREDES Admitting Unavailable HAY ., DR PAREDES Attending Unavailable JORGITO ., DR RAY Primary Care Unavailable PAY ., DR BHATT Consulting Unavailable RAO ., HIRAL Consulting Unavailable Problems Problem Classification Problem Date Documented Date Episodic/Chronic Headache; including migraine (4 sources) Migraine, unspecified, not intractable, without status migrainosus; Translations: [MIGRAINE UNS NOT INTRACT W/O SM] Onset: 07-14-2022 Chronic Other upper respiratory infections (1 source) Streptococcal pharyngitis; Translations: [STREPTOCOCCAL PHARYNGITIS] Onset: 07-18-2022 Episodic Substance-related disorders (1 source) Nicotine dependence, cigarettes, uncomplicated; Translations: [NICOTINE DEPEND CIGARETTES UNCOMP] Onset: 07-18-2022 Chronic Results Test Name Value Interpretation Reference Range Facil ity STREPT SCREENon 07-14-2022 STREP SCREEN A Positive Abnormal NEGATIVE [facility] Comment on above: Performed By: #### S SCRN #### [facility] [address] [address] [address] Zion Morrell Encounters Encounter Date Encounter Type Care Provider Facility Start: 07-14-2022 End: 07-14-[address] LENA REDDY . Facility:[facility] Start: 05-27-2022 End: 05-27-2022 ambulatory MACIE LYNN . Facility:[facility] Payers Date Payer Category Payer Medicaid [id number] 1975 Unknown [id number] [id number] [id number] 1975 Unknown [id number] Summary Purpose Family History No Family History Records Found Advance Directives No Advanced Directives Records Found Additional Source Comments (unrecognized sect ion and content) No Status Records Found INFORMATION SOURCE (unrecogn ized section and content) DATE CREATED AUTHOR 07/19/2022 [facility] FOR RECORDS PERTAINING TO PATIENTS WHO ARE OR HAVE BEEN ENROLLED IN A CHEMICAL DEPENDENCY/SUBSTANCEABUSE PROGRAM, SOME INFORMATION MAY BE OMITTED. This clinical summary was aggregated from multiple sources. Caution should be exercised in using it in the provision of clinical care. This summary normalizes information from multiple sources, and as a consequence, information in this document may materially change the coding, format and clinical context of patient data. In addition, data may be omitted in some cases. CLINICAL DECISIONS SHOULD BE BASED ON THE PRIMARY CLINICAL RECORDS. [facility] [employer] [facility]. provides no warranty or guarantee of the accuracy or completeness of information in this document.
== END 2024-01-05 13:11 | disposition home or self-care (01) ==
PROVIDERS: Emergency Provider Emergency Medicine; PCP Family Medicine
DX: R51.9 Headache, unspecified (principal); F17.200 Nicotine dependence, unspecified, uncomplicated; F15.90 Other stimulant use, unspecified, uncomplicated
CPT/HCPCS: 36415; 70450; 80053; 80307; 84484; 85025; 93005; 96374; 96375; 99285; J1885; J2360

== ENCOUNTER 2024-01-18 20:22 | Emergency (ER) | payer OTHER, MEDICAID, SELFPAY ==
[2024-01-18] VITALS (8 sets, daily range): BP systolic 123–143; BP diastolic 79–91; PULSE 85; TEMP 36.6; O2SAT 99–100; BMI 18.7
--- OUTSIDE RECORDS SUMMARY | 2024-01-18 20:35 | XMS_ITS | CCD ---
Author Organization [facility] Care Team Providers Care Pot Room Supervisor Name Role Phone SHANE ., MACIE Admitting [...] STREP SCREEN A Positive Abnormal NEGATIVE [facility] Comment on above: Performed By: #### S SCRN #### [facility] [address] [address] [address] Zion Morrell Encounters Encounter Date Encounter Type Care Provider Facility Start: 07-14-2022 End: 07-14-[address] LENA REDDY . Facility:[facility] Start: 05-27-2022 End: 05-27-2022 ambulatory MACIE LYNN . Facility:[facility] Payers Date Payer Category Payer Medicaid [id number] 1975 Unknown [id number] 1975 Unknown [id number] [id number] Summary Purpose Family History No Family History Records Found Advance Directives No Advanced Directives Records Found Additional Source Comments (unrecognized sect ion and content) No Status Records Found INFORMATION SOURCE (unrecogn ized section and content) DATE CREATED AUTHOR 07/19/2022 [facility] FOR RECORDS PERTAINING TO PATIENTS [...] BE BASED ON THE PRIMARY CLINICAL RECORDS. [facility] [employer] [facility]. provides no warranty or guarantee of the accuracy or completeness of information in this document.
--- NOTE | 2024-01-18 20:45 | ED_ITS ---
HPI HPI - General Adult General Chief complaint: Headache Stated complaint: HEADACHE Time Seen by Provider: 01/18/24 20:35 Source: patient Mode of arrival: walk-in Limitations: no limitations History of Present Illness HPI narrative: 48-year-old male presents for headache. He has had for 2 to 3 days and he has not had any trauma or stiff neck or fever. He was here few weeks ago and had a negative CAT scan and was positive for methamphetamine at the time. No localized weakness. He was nauseous and vomited today. Related Data Home Medications ?Medication ?Instructions ?Recorded ?Confirmed No Known Home Medications 11/18/23 01/18/24 Allergies Allergy/AdvReac Type Severity Reaction Status Date / Time No Known Drug Allergies Allergy Verified 01/18/24 20:30 Opioid HPI Opioid Management Most Recent Opioid Data: Last Pain Scale 10 01/18/24 21:18 01/18/24 Ur Phencyclidine Scrn Negative (NEGATIVE) 01/05/24 11:55 1104/28 Review of Systems ROS Narrative A ten point review of systems is negative except as noted above. [facility] Medical History (Updated 01/18/24 @ 22:06 by Ehsan Self MD) Polysubstance abuse ?F19.10 - Other psychoactive substance abuse, uncomplicated (ICD-10) Depression ?F32.A - Depression, unspecified (ICD-10) Migraine ?G43.909 - Migraine, unspecified, not intractable, without status migrainosus (ICD-10) Family History Father Family history of cancer Social History Within the past year, how often did you have a drink containing alcohol: 2-4 times a month Within the past year, how many standard drinks containing alcohol did you have on a typical day: 1 or 2 Within the past year, how often did you have six or more drinks on one occasion: less than monthly Total score: 1 Score interpretation: A score less than 4 is consistent with normal alcohol consumption. Smoking status: Current every day smoker Non-prescribed substance use: cannabis (any form), amphe tamines/methamphetamines and club/graphic user interface designer drugs Little interest or pleasure in doing things: not at all Feeling down, depressed, or hopeless: not at all Exam Narrative Exam Narrative: Nurses note and vital signs reviewed and patient is not hypoxic. General: The patient appears in no apparent distress. Patient is resting comfortably on cart. Skin: Warm, dry, no pallor noted. There is no rash noted. Head: Normocephalic, atraumatic; neck supple with no nuchal rigidity Eye: Normal conjunctiva, no drainage, EOMI. PERRL Ears, Nose, Mouth, and Throat: oral mucosa is moist. Nares patent. Cardiovascular: Regular Rate and Rhythm Respiratory: Patient is in no distress, no accessory muscle use, lungs are clear to auscultation, no wheezing, rales or rhonchi Back: non-tender GI: Soft and nontender Musculoskeletal: The patient has no evidence of calf tenderness, no pitting edema, symmetrical pulses noted bilaterally Neurological: A&O, normal speech; upper and lower extremity strength intact Psychiatric: Cooperative Constitutional Vital Signs, click to edit/add: Last Vital Signs Temp 97.8 F 01/18/24 20:30 Pulse 85 01/18/24 20:30 Resp 18 01/18/24 20:30 BP 123/84 01/18/24 21:30 Pulse Ox 100 01/18/24 21:50 O2 Del Method Room Air 01/18/24 20:30 Course Vital Signs Vital signs: Vital Signs Temperature 97.8 F 01/18/24 20:30 Pulse Rate 85 01/18/24 20:30 Respiratory Rate 18 01/18/24 20:30 Blood Pressure 143/91 H 01/18/24 20:30 Pulse Oximetry 99 01/18/24 20:30 Oxygen Delivery Method Room Air 01/18/24 20:30 Temperature 97.8 F 01/18/24 20:30 Pulse Rate 85 01/18/24 20:30 Respiratory Rate 18 01/18/24 20:30 Blood Pressure 123/84 01/18/24 21:30 Pulse Oximetry 100 01/18/24 21:50 Oxygen Delivery Method Room Air 01/18/24 20:30 Medical Decision Making MDM Narrative Medical decision making narrative: The patient feels much better now and is able to be discharged home. His headache he states was down to a 3 from a 10. Treatment diagnosis and follow-up were discussed with the patient. Have no clinical suspicion of meningitis or acute intracranial pathology. Differential Diagnosis Differential Diagnosis: Migraine headache, cluster headache, nonspecific headache, tension headache Discharge Plan Discharge Chief Complaint: Headache Clinical Impression: Headache Patient Disposition: Home, Self-Care Time of Disposition Decision: 22:03 Condition: Good Mode of Transportation: Private Vehicle Prescriptions / Home Meds: No Action No Known Home Medications Print Language: Spanish Instructions: Acute Headache (ED) Referrals: FLOR BULL [Primary Care Provider] - 1 week
[2024-01-18] MEDS: ONDANSETRON PF 4 MG/2 ML VIAL IV (21:18)
[2024-01-18] MEDS: KETOROLAC TROMETHAMINE 30 MG/ML VIAL IVP (21:18)
[2024-01-18] MEDS: METHYLPREDNISOLONE SOD SUCC PF 125 MG/2 ML VIAL IVP (21:18)
[2024-01-18] MEDS: DIPHENHYDRAMINE HCL 50 MG/ML VIAL 25 MG IV (21:18)
[2024-01-18] MEDS: 0.9 % SODIUM CHLORIDE 1,000 ML 1000 ML IV (21:18)
--- NOTE | 2024-01-18 22:07 | ED.GENADUL1 ---
HPI HPI - General Adult General Chief complaint: Headache Stated complaint: HEADACHE Time Seen by Provider: 01/18/24 20:35 Source: patient Mode of arrival: walk-in Limitations: no limitations Related Data Home Medications ?Medication ?Instructions ?Recorded ?Confirmed No Known Home Medications 11/18/23 01/18/24 Allergies Allergy/AdvReac Type Severity Reaction Status Date / Time No Known Drug Allergies Allergy Verified 01/18/24 20:30 Opioid HPI Opioid Management Most Recent Opioid Data: Last Pain Scale 10 01/18/24 21:18 01/18/24 Ur Phencyclidine Scrn Negative (NEGATIVE) 01/05/24 11:55 01/05/24 PFSH PFSH Medical History (Updated 01/18/24 @ 22:06 by Ehsan Self MD) Polysubstance abuse ?F19.10 - Other psychoactive substance abuse, uncomplicated (ICD-10) Depression ?F32.A - Depression, unspecified (ICD-10) Migraine ?G43.909 - Migraine, unspecified, not intractable, without status migrainosus (ICD-10) Family History Father Family history of cancer Social History Within the past year, how often did you have a drink containing alcohol: 2-4 times a month Within the past year, how many standard drinks containing alcohol did you have on a typical day: 1 or 2 Within the past year, how often did you have six or more drinks on one occasion: less than monthly Total score: 1 Score interpretation: A score less than 4 is consistent with normal alcohol consumption. Smoking status: Current every day smoker Non-prescribed substance use: cannabis (any form), amphetamines/methamphetamines and club/electronic parts designer drugs Little interest or pleasure in doing things: not at all Feeling down, depressed, or hopeless: not at all Exam Constitutional Vital Signs, click to edit/add: Last Vital Signs Temp 97.8 F 01/18/24 20:30 Pulse 85 01/18/24 20:30 Resp 18 01/18/24 20:30 BP 123/84 01/18/24 21:30 Pulse Ox 100 01/18/24 21:50 O2 Del Method Room Air 01/18/24 20:30 Course Vital Signs Vital signs: Vital Signs Temperature 97.8 F 01/18/24 20:30 Pulse Rate 85 01/18/24 20:30 Respiratory Rate 18 01/18/24 20:30 Blood Pressure 143/91 H 01/18/24 20:30 Pulse Oximetry 99 01/18/24 20:30 Oxygen Delivery Method Room Air 01/18/24 20:30 Temperature 97.8 F 01/18/24 20:30 Pulse Rate 85 01/18/24 20:30 Respiratory Rate 18 01/18/24 20:30 Blood Pressure 123/84 01/18/24 21:30 Pulse Oximetry 100 01/18/24 21:50 Oxygen Delivery Method Room Air 01/18/24 20:30 Medical Decision Making MDM Narrative Medical decision making narrative: The patient feels much improved now and is able to be discharged home. I have no clinical suspicion of meningitis or acute intracranial pathology. He had a negative CAT scan a few weeks ago. Treatment diagnosis and follow-up were discussed with the patient. Differential Diagnosis Differential Diagnosis: Migraine headache, tension headache, cluster headache, nonspecific headache Medical Records Medical records reviewed: Yes I reviewed the patient's medical records Lab Data Lab results reviewed: Yes I reviewed the patient's lab results Discharge Plan Discharge Chief Complaint: Headache Clinical Impression: Headache Patient Disposition: Home, Self-Care Time of Disposition Decision: 22:03 Condition: Good Mode of Transportation: Private Vehicle Prescriptions / Home Meds: No Action No Known Home Medications Print Language: Azeri Instructions: Acute Headache (ED) Referrals: FLOR BULL [Primary Care Provider] - 1 week
== END 2024-01-18 22:39 | disposition home or self-care (01) ==
PROVIDERS: Emergency Provider Emergency Medicine; PCP Family Medicine
DX: R51.9 Headache, unspecified (principal); F17.200 Nicotine dependence, unspecified, uncomplicated; F19.10 Other psychoactive substance abuse, uncomplicated; R11.2 Nausea with vomiting, unspecified
CPT/HCPCS: 96374; 96375; 99284; J1200; J1885; J2405; J2919

== ENCOUNTER 2024-06-05 23:45 | Emergency (ER) | payer OTHER, MEDICAID, SELFPAY ==
--- NOTE | 2024-06-06 00:03 | ED_ITS ---
HPI HPI - General Adult General Chief complaint: Cardiac Arrest/CPR Stated complaint: FULL ARREST Time Seen by Provider: 06/06/24 00:00 Source: other Source information: EMS Mode of arrival: ambulance History of Present Illness HPI narrative: 49-year-old male presents to the emergency department in arrest. He had last been seen 30 minutes prior to bystanders calling 911. Paramedics arrived and he was cyanotic and unresponsive. CPR was in progress by crime prevention police officer who had already administered Narcan and the bystanders had administered Narcan as well. Paramedics placed a Asaf airway gave several more doses of Narcan and provided appropriate ACLS protocol. He was given IV epinephrine and IV bicarbonate. This did not result in any change in his status. No further history is ob tainable. In speaking with the paramedics and police officers they suspect that he had overdosed. Related Data Home Medications ?Medication ?Instructions ?Recorded ?Confirmed No Known Home Medications 11/18/23 01/18/24 Allergies Allergy/AdvReac Type Severity Reaction Status Date / Time No Known Drug Allergies Allergy Verified 01/18/24 20:30 Opioid HPI Opioid Management Most Recent Opioid Data: Last Pain Scale 10 01/18/24 21:18 01/18/24 Ur Phencyclidine Scrn Negative (NEGATIVE) 01/05/24 11:55 1104/28 Review of Systems ROS Narrative Not obtainable, cardiac arrest [facility] Medical History (Updated 06/06/24 @ 00:02 by Ehsan Self MD) Polysubstance abuse ?F19.10 - Other psychoactive substance abuse, uncomplicated (ICD-10) Depression ?F32.A - Depression, unspecified (ICD-10) Migraine ?G43.909 - Migraine, unspecified, not intractable, without status migrainosus (ICD-10) Family History Father Family history of cancer Social History Within the past year, how often did you have a drink containing alcohol: 2-4 times a month Within the past year, how many standard drinks containing alcohol did you have on a typical day: 1 or 2 Within the past year, how often did you have six or more drinks on one occasion: less than monthly Total score: 1 Score interpretation: A score less than 4 is consistent with normal alcohol consumption. Smoking status: Current every day smoker Non-prescribed substance use: cannabis (any form), amphetamines/methamphetamines and club/tool and die maker/designer drugs Little interest or pleasure in doing things: not at all Feeling down, depressed, or hopeless: not at all Exam Narrative Exam Narrative: Nurses note and vital signs reviewed and patient is not hypoxic. General: The patient is undergoing CPR with Asaf airway in place. Skin: Cool and dry. Head: Normocephalic, atraumatic Eye: Pupils are fixed and dilated Ears, Nose, Mouth, and Throat: Asaf airway in place Cardiovascular: No heart tones Respiratory: Breath sounds are equal with bagging but he has no spontaneous respirations. GI: Soft and nondistended Musculoskeletal: No obvious deformities Neurological: No neurologic response Psychiatric: Cannot be assessed Medical Decision Making MDM Narrative Medical decision making narrative: CPR was continued and ACLS protocol was followed. At no point did he have a pulse. He was given several more doses of IV epinephrine and a blood sugar was checked and was found to be over 400. He was in V-fib at 1 point and was administered defibrillation without change in his status. Multiple pulse checks did not show return of spontaneous circulation and he was pronounced at 11:55 PM. The weblogic developer's office was contacted and I spoke to the animal cruelty investigator. No family or friends have been here with whom I could discussed the case. Differential Diagnosis Differential Diagnosis: Drug overdose, heart disease Discharge Plan Discharge Patient Disposition: Date/Time: 06/05/24 23:55 Probable Cause of Probable Cause of : unknown
--- NOTE | 2024-06-06 00:07 | PC.NURSE ---
Patient last known well was 30min prior to EMS arrival at 2323. Narcan given and CPR started. EMS gave 2epi and bicarb. 2242 arrive to ED. CPR in progress. 2344 pulse check, asystole 2345 epi given 2345 pulse check, asystole 2347 pulse check, asystole 2348 pulse check, vfib, epi given 2349 shock given 2350 Pulse check, asystole 2351 pulse check, asystole 2352 Epi given 2353 pulse check, asystole 2355 Asystole, time of
--- NOTE | 2024-06-06 00:53 | PC.NURSE ---
0030 attempted to call next of kin on file, number is disconnected. Officer stated he let family at the scene know that patient passed and they chose not to come to ER. 0041 [facility] called case [id number] co founder and chairman arrived
== END 2024-06-06 02:15 | disposition expired ==
PROVIDERS: Emergency Provider Emergency Medicine; PCP Family Medicine
DX: I46.9 Cardiac arrest, cause unspecified (principal); F17.200 Nicotine dependence, unspecified, uncomplicated
CPT/HCPCS: 99285; J0171